=== PATIENT | female | born 1965 | race Caucasian/White ===

== ENCOUNTER 2016-12-17 23:06 | Emergency (ER) | payer OTHER ==
[~2016-12-17] VITALS: Ht 160 cm; Wt 45.4 kg
[2016-12-17 23:10] VITALS: BP 117/96
== END 2016-12-18 00:54 | disposition left against medical advice (07) ==
LOC: ER 23:09
DX: Z53.21 Procedure and treatment not carried out due to patient leaving prior to being seen by health care provider (principal)
CPT/HCPCS: A4606; Z7610

== ENCOUNTER 2018-04-22 17:23 | Emergency (ER) | payer OTHER ==
[~2018-04-22] VITALS: Ht 165.1 cm; Wt 45.4 kg
[~2018-04-22 17:23] MED LIST: BUPR-96 PO; HYDR-3026 PO; LAMO200T2 PO; PRAZ5CAP2 PO; QUET300T2 PO; TEMA30CA PO; TRAZ-214 PO
[2018-04-22 17:30] VITALS: BP 125/86
--- NOTE | 2018-04-22 17:55 | NUR ---
PATIENT TO ED FOR REMOVAL OF LEFT MIDDLE FINGER "STUCK" RING.
--- NOTE | 2018-04-22 19:11 | NUR ---
REPORT RECEIVED FROM ANITHA PIRES FOR [facility].
[2018-04-22] MEDS ORDERED: ACETAMINOPHEN 325 MG TABLET ONE (20:48)
[2018-04-22] MEDS ORDERED: ACETAMINOPHEN 325 MG TABLET PO ONE (21:00)
== END 2018-04-22 21:03 | disposition home or self-care (01) ==
LOC: ER 17:24
DX: S60.453A Superficial foreign body of left middle finger, initial encounter (principal); F31.9 Bipolar disorder, unspecified; F41.9 Anxiety disorder, unspecified; Z88.0 Allergy status to penicillin; Z91.048 Other nonmedicinal substance allergy status; Z79.899 Other long term (current) drug therapy; W49.04XA Ring or other jewelry causing external constriction, initial encounter; Y93.89 Activity, other specified; Y92.89 Other specified places as the place of occurrence of the external cause; Y99.8 Other external cause status
CPT/HCPCS: 99284; A4606; Z7610

== ENCOUNTER 2020-02-11 04:51 | Emergency (ER) | payer OTHER ==
[~2020-02-11] VITALS: Ht 160 cm; Wt 58.1 kg
[~2020-02-11 04:51] MED LIST changes: -HYDR-3026 PO; +HYDR-500 PO; -TRAZ-214 PO; +TRAZ-257 PO
[2020-02-11] MEDS ORDERED: OLANZAPINE 10 MG VIAL IM ONE ×2 (04:54→05:00)
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
--- NOTE | 2020-02-11 05:02 | NUR ---
PT VERBALLY AGGRESSIVE TO STAFF. DELUSIONAL AND NOT COOPERATIVE.
[2020-02-11 05:12] LABS: BASOPHILS % (AUTO) 0.7 % (0.0-2.0); HEMATOCRIT 38 % (33-45); HEMOGLOBIN 12.7 g/dL (11.5-14.8); LYMPHOCYTES # (AUTO) 2.8 /CMM (0.8-4.8); LYMPHOCYTES % (AUTO) 51.3 % (20.0-44.0); MEAN CORPUSCULAR HGB CONC 34 g/dl (31.0-36.0); MEAN CORPUSCULAR VOLUME 95 fL (82-100); MONOCYTES # (AUTO) 0.8 /CMM (0.1-1.30); MONOCYTES % (AUTO) 14.5 % (2.0-12.0); NEUTROPHILS # (AUTO) 1.7 /CMM (1.8-8.9); NEUTROPHILS % (AUTO) 31.5 % (43.0-81.0); PLATELET COUNT (AUTO) 341 /CMM (150-450); RED BLOOD CELL COUNT(AUTO) 3.97 MIL/uL (4.0-5.2); WHITE BLOOD COUNT (AUTO) 5.4 K/uL (4.3-11.0)
[2020-02-11 05:15] LABS: CALCIUM, SERUM 9.6 mg/dL (8.5-10.1); CARBON DIOXIDE 23 mmol/L (21-32); CHLORIDE 91 mmol/L (98-107); CREATININE 0.8 mg/dL (0.6-1.3); GLUCOSE 90 mg/dL (74-106); POTASSIUM 3.9 mmol/L (3.5-5.1); SODIUM SERUM 128 mmol/L (136-145); UREA NITROGEN, BLOOD 10 mg/dL (7-18)
[2020-02-11] MEDS ORDERED: LORAZEPAM INJ 2 MG/ML VIAL ONE ×3 (05:16→14:59)
--- NOTE | 2020-02-11 05:20 | NUR ---
UNABLE TO PROVIDE URINE SAMPLE AT THIS TIME. MD JENKINS
[2020-02-11 05:21] LABS: ACETAMINOPHEN 0 ug/ml (10-30); ALANINE AMINOTRANSFERASE 30 U/L (12-78); ALCOHOL, BLOOD < 3 mg/dL (0-0); ALKALINE PHOSPHATASE 101 U/L (46-116); ASPARTATE AMINOTRANSFERASE 28 U/L (15-37); BILIRUBIN,DIRECT 0.1 mg/dL (0.0-0.2); BILIRUBIN,TOTAL 0.5 mg/dL (0.2-1.0); TOTAL PROTEIN, SERUM 7.5 g/dL (6.4-8.2)
[2020-02-11 05:22] LABS: SALICYLATE 1.6 mg/dL (2.8-20.0)
[2020-02-11] MEDS ORDERED: LORAZEPAM INJ 2 MG/ML VIAL IM ONE ×2 (05:30→15:00)
--- NOTE | 2020-02-11 06:03 | NUR ---
GEORGE CULLEN- CONSERVATOR [phone].
[2020-02-11] MEDS ORDERED: HALOPERIDOL LACTATE INJ 5 MG/ML VIAL ONE ×2 (06:04→14:58)
[2020-02-11] MEDS ORDERED: HALOPERIDOL LACTATE INJ 5 MG/ML VIAL IM ONE ×2 (06:30→15:00)
--- NOTE | 2020-02-11 06:41 | NUR ---
PT RESTING COMFORTABLY IN BED. VSS. SITTER AT BEDSIDE FOR SAFETY. NO ACUTE DISTRESS NOTED. WILL CONTINUE TO MONITOR
--- NOTE | 2020-02-11 07:55 | NUR ---
PATIENT A/OX4, ASSISTED PATIENT TO RESTROOM FOR A URINE SAMPLE THEN BECAME VERBALLY AGGRESSIVE, UNCOOPERATIVE WITH STAFF, SCREAMING AND YELLING. DR. SAM AWARE.
[2020-02-11] MEDS ORDERED: LORAZEPAM 1 MG TABLET PO ONE (08:00)
[2020-02-11] MEDS ORDERED: LORAZEPAM 1 MG TABLET ONE (08:03)
[2020-02-11 08:22] LABS: APPEARANCE,URINE Clear (CLEAR); BILIRUBIN,URINE Negative (NEGATIVE); BLOOD, URINE Negative Ery/uL (NEGATIVE); COLOR,URINE Yellow (YELLOW); KETONES,URINE 40 (NEGATIVE); LEUKOCYTE ESTERASE ,URINE Negative (NEGATIVE); NITRITE, URINE Negative (NEGATIVE); PROTEIN,URINE Negative (NEGATIVE); UGLUCOSE Negative (NEGATIVE); UROBILINOGEN,URINE 0.2 EU/dL (0.2)
--- NOTE | 2020-02-11 09:16 | NUR ---
PATIENT RESTING IN BED, NO DISTRESS NOTED.
[2020-02-11] MEDS ORDERED: QUETIAPINE FUMARATE 25 MG TABLET PO SCH (13:00)
--- NOTE | 2020-02-11 14:11 | NUR ---
Neighbor Christine Robbins [phone] called to leave contact information
[2020-02-11] MEDS ORDERED: QUETIAPINE FUMARATE 25 MG TABLET ONE (14:23)
[2020-02-11] MEDS ORDERED: diphenhydrAMINE HCL 50 MG/ML VIAL ONE (14:58)
[2020-02-11] MEDS ORDERED: diphenhydrAMINE HCL 50 MG/ML VIAL IM ONE (15:00)
--- NOTE | 2020-02-11 15:04 | NUR ---
PT NOTED AGITATED, TRYING TO GET OUT OF BED, SCREAMING AND YELLING. MD MADE AWARE. ORDERS RECEIVED. PT MEDICATED ORDERED.
--- NOTE | 2020-02-11 18:04 | NUR ---
PATIENT AMBULATORY WITH STEADY GAIT, NO DISTRESS NOTED, COOPERATIVE AT THIS TIME, SISTER IN LAW GEORGE PRESENT AT THE FACILITY, RESOURCES PROVIDED.
--- NOTE | 2020-02-11 18:12 | NUR ---
Patient discharged to home in stable condition. Written and verbal after care instructions given to sister in law Saxena. Patient verbalizes understanding of instruction.
[2020-02-11 18:15] VITALS: BP 155/96
== END 2020-02-11 18:17 | disposition home or self-care (01) ==
LOC: ER 04:55
DX: F23 Brief psychotic disorder (principal); F31.9 Bipolar disorder, unspecified; F41.9 Anxiety disorder, unspecified; Z88.0 Allergy status to penicillin; Z88.8 Allergy status to other drugs, medicaments and biological substances; Z79.899 Other long term (current) drug therapy
CPT/HCPCS: 36415; 80048; 80076; 80305; 80307; 80329; 81001; 85025; 96372 ×2; 99285; G0480; J1200; J1630 ×2; J2060 ×3; J3490; 81000-TC